=== PATIENT | male | born 1995 | race Caucasian/White ===

== ENCOUNTER 2016-12-02 09:52 | Inpatient (IN) | payer BC, OTHER ==
[~2016-12-02] VITALS: Ht 167.6 cm; Wt 56.7 kg
--- NOTE | 2016-12-02 11:35 | NUR ---
Admission Note: Patient is a 21 year old male who states that he is here to get help from BZOs. Alert and oriented x 4. Able to make his needs known. Able to answer questions appropriately regarding the admission process and drug use. Appears anxious with fine tremors to bilateral hands and clammy skin. Respirations even and unlabored. No SOB noted. Skin warm and moist to touch. Body search done by male DIRECTOR ERP. No contraband was found. Skin search done by nurse and noted with no skin breakdown. However, patient noted with skin peeling from his right deltoid from a new tattoo he got 3 days ago. No s/s of infection noted. Abdomen soft and non-distended. No complains of N/V/D or constipation noted. No complains of abdominal discomfort. Reports LBM 12/02/2016 during the plane ride from [place]. Ambulatory ad sebas with steady gait. Reports NKA. Follows a regular diet. Wishes to be FULL CODE. Reports past medical hx of anxiety, depression, and x 1 episode of seizure at 16 years old due to BZO withdrawal. Reports taking Celexa 30 mg PO at home and Seroquel 100 mg PO QHS for insomnia. Last taken was 1 month ago. He denies having a PCP at this time. Noted with family hx of substance abuse and has as mother that in 03/2016 due to overdose. Patient reports that his withdrawal symptoms are tremors, sweats, clammy skin, anxiety, and agitation. He denies sharing needles with anyone and his longest period of sobriety was for 6 months from end of Jul 2015 to January 2016. He has been to multiple treatment centers and has struggled with sobriety. Substance Use: 1. Etizolam - since 2015. Orally takes 10 mg PO. Last use was on 11/30/2016, 10 mg PO. 2. Alprazolam - since 2015. Orally takes 2 mg PO when Etizolam is not available. Last use was 12/02/2016 at 0800 PST, 2 mg. 3. Methamphetamine - started using less than a week ago, last use was on 12/02/2016 at 0000, "2 bumps or hits." 4. Marijuana - since July 2016. Smoked 1 gram a day. Last use was on 12/01/2016 at 0900, 1 gram. Treatment History: 1. [facility] - x 1 month in 2015 2. [facility] - x 1 month in 03/2016 3. [facility] - from May 2016 to mid-June 2016. Dr. Awad in and examined the patient. Informed MD of patient's current condition. Admission orders were entered and carried out. Oriented patient to the unit. Explained unit's policy and protocols. Safety precautions in place. Will continue to monitor closely.
[2016-12-02 11:36] VITALS: BP 133/75
[2016-12-02 12:00] VITALS: BP 133/75
[2016-12-02] MEDS ORDERED: CITA20TA19 PO (12:13)
[2016-12-02] MEDS ORDERED: QUET100T PO (12:13)
[2016-12-02 12:28] LABS: *AMPHETAMINE, URINE POSITIVE (NEGATIVE); *BARBITURATE, URINE NEGATIVE (NEGATIVE); *CANNABINOID, URINE POSITIVE (NEGATIVE); *COCCAINE, URINE NEGATIVE (NEGATIVE); *OPIATE, URINE NEGATIVE (NEGATIVE); *PHENCYCLIDINE SCREEN,URINE NEGATIVE (NEGATIVE)
[2016-12-02] MEDS ORDERED: MIRALAX 17 GM POWD.PACK PO PRN (12:30)
[2016-12-02] MEDS ORDERED: DIAZEPAM 10 MG TABLET PO PRN ×2 (12:30)
[2016-12-02] MEDS ORDERED: MAGNESIUM HYDROXIDE 30 ML LIQUID UDC PO PRN (12:30)
[2016-12-02] MEDS ORDERED: DICYCLOMINE HCL 20 MG TABLET PO PRN (12:30)
[2016-12-02] MEDS ORDERED: CLONIDINE HCL 0.1 MG TABLET PO PRN (12:30)
[2016-12-02] MEDS ORDERED: LOPERAMIDE HCL 2 MG CAPSULE PO PRN ×2 (12:30)
[2016-12-02] MEDS ORDERED: LORAZEPAM 2 MG/1 ML VIAL IM PRN (12:30)
[2016-12-02] MEDS ORDERED: HYDROXYZINE PAMOATE 25 MG CAPSULE PO PRN (12:30)
[2016-12-02] MEDS ORDERED: ACETAMINOPHEN 325 MG TABLET PO PRN (12:30)
[2016-12-02] MEDS ORDERED: DIAZEPAM 5 MG TABLET PO PRN (12:30)
[2016-12-02] MEDS ORDERED: ONDANSETRON ODT 4 MG TAB.RAPDIS SL PRN (12:30)
[2016-12-02] MEDS ORDERED: BACLOFEN 20 MG TABLET PO PRN (12:30)
[2016-12-02] MEDS ORDERED: diphenhydrAMINE 50 MG CAPSULE PO PRN (12:30)
[2016-12-02] MEDS ORDERED: IBUPROFEN 600 MG TABLET PO PRN (12:30)
[2016-12-02] MEDS ORDERED: MAG HYDROX/AL HYDROX/SIMETH 30 ML LIQUID UDC PO PRN (12:30)
[2016-12-02] MEDS ORDERED: ONDANSETRON 4 MG/2 ML VIAL IM PRN (12:30)
--- NOTE | 2016-12-02 13:03 | NUR ---
PRN Valium 5 mg PO given: CIWA 8. Presented with anxiety, sweats and BUE minimal tremors. Notified MD. Per MD, administer Valium 5 mg PO as ordered per CIWA score of 8. Will monitor for effectiveness.
[2016-12-02 13:04] LABS: BASOPHILS % (AUTO) 0.6 % (0.0-2.0); EOSINOPHILS % (AUTO) 0.4 % (0.0-7.0); HEMATOCRIT 52.2 % (36.7-47.1); HEMOGLOBIN 17.6 g/dL (12.5-16.3); LYMPHOCYTES # (AUTO) 2.1 K/uL (20.0-40.0); LYMPHOCYTES % (AUTO) 27.7 % (20.5-74.5); MEAN CORPUSCULAR HEMOGLOBIN 30.3 uug (23.8-33.4); MEAN CORPUSCULAR HGB CONC 34 g/dL (32.5-36.3); MEAN CORPUSCULAR VOLUME 89.6 fL (73.0-96.2); MONOCYTES # (AUTO) 0.8 K/uL (2.0-10.0); NEUTROPHILS # (AUTO) 4.7 K/uL (1.8-8.9); NEUTROPHILS % (AUTO) 61.3 % (31.5-64.5); PLATELET COUNT (AUTO) 200 K/uL (152-348); RED BLOOD CELL COUNT(AUTO) 5.82 MIL/uL (4.06-5.63); WHITE BLOOD COUNT (AUTO) 7.6 K/uL (3.6-10.2)
[2016-12-02 13:22] LABS: ETHANOL < 3 MG/DL (0-0)
[2016-12-02 13:34] LABS: THYROID STIMULATING HORMONE 1.242 mIU/mL (0.358-3.740)
[2016-12-02 13:35] LABS: ALANINE AMINOTRANSFERASE 18 U/L (16-63); ALBUMIN 4.7 g/dL (3.4-5.0); ALKALINE PHOSPHATASE 68 U/L (50-136); ASPARTATE AMINOTRANSFERASE 23 U/L (15-37); CALCIUM 9.6 mg/dL (8.5-10.1); CARBON DIOXIDE 30 mmol/L (21-32); CHLORIDE 101 mmol/L (98-107); CREATININE 1.1 mg/dL (0.6-1.3); GFR 85 mL/min (>60); GLUCOSE 104 mg/dL (74-106); MAGNESIUM 2.1 mg/dL (1.8-2.4); POTASSIUM 3.9 mmol/L (3.5-5.1); SODIUM SERUM 141 mmol/L (136-145); TOTAL PROTEIN, SERUM 8.4 g/dL (6.4-8.2); UREA NITROGEN, BLOOD 9 mg/dL (7-18)
[2016-12-02 13:39] LABS: HIV-1 p24 ANTIGEN NON REACTIVE (NONREACTIVE); HIV-1/2 ANTIBODY NON REACTIVE (NONREACTIVE)
--- NOTE | 2016-12-02 14:03 | NUR ---
Re-assessment: CIWA 6. Less anxiety, less fine tremors noted. Patient is in group at this time.
[2016-12-02 16:00] VITALS: BP 127/87
--- NOTE | 2016-12-02 18:42 | NUR ---
End of Shift Notes: Patient is a 21 yaer old male admitted for BZO dependence who was placed on a modified 5-day Phenobarbital taper which will be started tomorrow but with 1 dose of of 90 mg PO to be given tonight. Patient is FULL CODE. NKA. Regular diet. On fall and seizure precautions. Has past medical hx of depression, anxiety, insomnia and seizures related to withdrawal from BZO. Prior to admission, patient was using 10 mg of Etizolam and 2 mg of Alprazolam x 4 months. VS monitored closely q 4 hours. No significant abnormalities noted. Withdrawal symptoms closely monitored. Initial CIWA 8, presented with anxiety, sweats and tremors to E. Last CIWA 6. Patient was medicated with Valium 5 mg PO as ordered at 1302 due to CIWA 8 with help after 1 hour, CIWA 6. Patient actively participates in activities and therapy sessions. Oral fluids encouraged. Able to tolerate oral intake. All needs met and attended. Will continue to monitor closely.
--- NOTE | 2016-12-02 19:14 | NUR ---
Start of shift note Received report from day shift nurse. Pt is a 21 yo male, A+Ox4, presenting to [facility] for Benzo/Methamphetamine/Marijuana dependence. Pt has NKA, is Full Code status, and on Regular diet. Pt is on Fall and Seizure precautions. Pt has HX of Depression, Seizure, Anxiety, and Insomnia. Pt is on 5 day Phenobarbital taper, tolerated well. No s/s of distress noted at this time. Respirations even and unlabored. Will continue to monitor.
[2016-12-02 20:18] VITALS: BP 139/82
[2016-12-02] MEDS ORDERED: PHENOBARBITAL 60 MG TABLET PO SCH (21:00)
--- NOTE | 2016-12-02 22:05 | NUR ---
PRN Benadryl Pt c/o inability to sleep and requested for PRN Benadryl. Medication given and tolerated well. Will reassess within 1 HR. Will continue to monitor.
--- NOTE | 2016-12-02 23:00 | NUR ---
PRN Benadryl Reassessment Medication effective. Pt is resting well in bed. No s/s of ASE/distress noted at this time. Respirations even and unlabored. Will continue to monitor.
[2016-12-03 00:58] VITALS: BP 121/80
[2016-12-03 04:21] VITALS: BP 113/65
--- NOTE | 2016-12-03 07:02 | NUR ---
End of shift note Pt is a 21 yo male, A+Ox4, presenting to [facility] for Benzo/Methamphetamine/Marijuana dependence. Pt has NKA, is Full Code status, and on Regular diet. Pt is on Fall and Seizure precautions. Pt has HX of Depression, Seizure, Anxiety, and Insomnia. Pt is on 5 day Phenobarbital taper, tolerated well. Pt was given PRN Benadryl @2205. Pt slept for a total of 7 HRS. Last CIWA: 3 @0400. No s/s of distress noted at this time. Respirations even and unlabored. Will endorse to day shift nurse.
[2016-12-03 08:00] VITALS: BP 112/75
--- NOTE | 2016-12-03 08:00 | NUR ---
START OF SHIFT Pt 21 y/o male admitted for bzo dependence. Pt received in room on bed with eyes closed, but easily arousable to name. Pt alert and oriented to name, place, and time. Perrla. Skin warm and slightly moist to touch. Respirations even and unlabored. It was reported that pt slept for 7 hours last night. Bed on lowest position with side rails x2 up for safety. Call light within reach. No distress noted at this time.
[2016-12-03] MEDS ORDERED: GABAPENTIN 300 MG CAPSULE PO SCH (09:00)
[2016-12-03] MEDS ORDERED: TUBERCULIN,PURIF.PROT.DERIV. 5 TU/0.1 ML TEST ID ONE (09:00)
[2016-12-03] MEDS: MULTIVITAMINS,THERAPEUTIC TABLET PO SCH (09:06)
[2016-12-03] MEDS: PHENOBARBITAL 60 MG TABLET PO SCH ×4 (09:06→20:46)
[2016-12-03 12:00] VITALS: BP 138/92
[2016-12-03 14:12] LABS: HCV AB <0.1 s/co ratio (0.0-0.9); HEPATITIS B CORE AB, IgM Negative (Negative); HEPATITIS B SURFACE AG Negative (Negative)
[2016-12-03] MEDS: GABAPENTIN 300 MG CAPSULE PO SCH ×2 (15:17→20:46)
[2016-12-03 16:00] VITALS: BP 105/63
--- NOTE | 2016-12-03 18:13 | NUR ---
END OF SHIFT Pt 21 y/o male admitted for bzo dependence. Pt alert and oriented to name, place, and time. Perrla. Skin warm and slightly moist to touch. Respirations even and unlabored. Pt observed mostly in room throughout the day. Pt selective with group activity. Pt medication compliant and tolerated well. No ASe noted. Bed on lowest position with side rails x2 up for safety. Call light within reach. No distress noted at this time.
[2016-12-03 20:00] VITALS: BP 128/81
--- NOTE | 2016-12-03 20:00 | NUR ---
START OF SHIFT NOTE PATIENT WAS IN GROUP MEETING. PATIENT ALERT AND ORIENTED X 4. RESPIRATION EVEN AND UNLABORED. PATIENT REPORTS ANXIOUS, SWEATING AND FLUSHED FACE, PATIENT STATES HIS APPETITE IS GETTING BETTER AND HE MIGHT NEED SLEEP AID LATER BECAUSE HE DID NOT GET MUCH SLEEP LAST NIGHT. MEDICATION IS ALSO EFFECTIVE IN CONTROLLING HIS WITHDRAWAL SYMPTOMS. RECEIVED REPORT FROM DAY SHIFT NURSE, PATIENT IS A 21 YEAR OLD MALE , ADMITTED ON 12/02/16 FOR BENZO DEPENDENCE. PATIENT IS ON 2ND DAY OF HIS 7 DAY PHENOBARBITAL TAPER. PATIENT IS FULL CODE, REGULAR DIET AND NO KNOWN ALLERGY. PATIENT REPORTS PMH OF DEPRESSION , SEIZURE X 1 R/T BENZO WITHDRAWAL 5 YEARS AGO , ANXIETY AND INSOMNIA. PATIENT IS ON ETIZOLAM 10 MG FOR 3 MONTHS, XANAX 2 MG FOR 4 MONTHS , METH "2 BUMPS OR HITS" LESS THAN A WEEK AND MARIJUANA 1 GRAM FOR 4 MONTHS. ON FALL/SEIZURE PRECAUTION. SKIN INTACT. PATIENT DID NOT REQUIRE ANY PRN MEDICATION DURING THE DAY. LAST CIWA 4. SAFETY MEASURES IN PLACE. CALL LIGHT IN REACH. WILL CONTINUE TO MONITOR.
[2016-12-03] MEDS ORDERED: DIAZEPAM 10 MG TABLET PO PRN ×2 (21:15)
[2016-12-03] MEDS ORDERED: DIAZEPAM 5 MG TABLET PO PRN (21:15)
[2016-12-03] MEDS: QUETIAPINE FUMARATE 100 MG TABLET PO PRN (21:44)
--- NOTE | 2016-12-03 21:44 | NUR ---
PRN SEROQUEL ADMINISTRATION PATIENT REQUESTS FOR SLEEP AID. PRN SEROQUEL GIVEN. WILL MONITOR FOR EFFECTIVENESS
--- NOTE | 2016-12-03 23:00 | NUR ---
PRN SEROQUEL RE-ASSESSMENT PATIENT IN BED WITH EYE CLOSED. RESPIRATION EVEN AND UNLABORED. SAFETY MEASURES IN PLACE. CALL LIGHT IN REACH. WILL CONTINUE TO MONITOR.
[2016-12-04] VITALS: BP 114/54
[2016-12-04 04:00] VITALS: BP 110/61
--- NOTE | 2016-12-04 07:28 | NUR ---
END OF SHIFT NOTE PATIENT ALERT AND ORIENTED X 4. RESPIRATION EVEN AND UNLABORED. PATIENT REPORTS ANXIOUS, SWEATING AND FLUSHED FACE DURING SHIFT. PRN SEROQUEL AT 2144 WAS GIVEN AND EFFECTIVE. PATIENT STATES MEDICATION IS EFFECTIVE IN CONTROLLING HIS WITHDRAWAL SYMPTOMS. PATIENT COMPLIANT WITH MEDICATIONS AND TREATMENT PLAN. PATIENT IS ON 2ND DAY OF HIS 7 DAY PHENOBARBITAL TAPER FOR BENZO DEPENDENCE. PATIENT IS FULL CODE, REGULAR DIET AND NO KNOWN ALLERGY. PATIENT REPORTS PMH OF DEPRESSION , SEIZURE X 1 R/T BENZO WITHDRAWAL 5 YEARS AGO , ANXIETY AND INSOMNIA. PATIENT IS ON ETIZOLAM 10 MG FOR 3 MONTHS, XANAX 2 MG FOR 4 MONTHS , METH "2 BUMPS OR HITS" LESS THAN A WEEK AND MARIJUANA 1 GRAM FOR 4 MONTHS. ON FALL/SEIZURE PRECAUTION. SKIN INTACT. SAFETY MEASURES IN PLACE. CALL LIGHT IN REACH. WILL CONTINUE TO MONITOR. SLEPT 8 HOURS. FLUID INTAKE 1,446 ML. VOIDED X 3. NO BM. LAST CIWA 1.
[2016-12-04 08:00] VITALS: BP 108/60
--- NOTE | 2016-12-04 08:00 | NUR ---
START OF SHIFT Pt 21 y/o male admitted for BZO dependence. Pt received in room on bed with eyes closed, but easily arousable to name. Pt alert and oriented to name, place, and time. Perrla. Skin warm and slightly moist to touch. Respirations even and unlabored. It was reported that pt slept for 8 hours last night. Bed on lowest position with side rails x2 up for safety. Call light within reach. No distress noted at this time.
[2016-12-04] MEDS: MULTIVITAMINS,THERAPEUTIC TABLET PO SCH (08:53)
[2016-12-04] MEDS: GABAPENTIN 300 MG CAPSULE PO SCH ×3 (08:53→20:30)
[2016-12-04] MEDS: PHENOBARBITAL 60 MG TABLET PO SCH ×3 (08:53→20:30)
[2016-12-04 12:00] VITALS: BP 125/60
--- NOTE | 2016-12-04 12:12 | NUR ---
Therapist encouraged client to attend group session.
--- NOTE | 2016-12-04 14:12 | NUR ---
NSG ENTRY Pt observed in room on bed with eyes closed resting, but easily arousable to name.
[2016-12-04 16:00] VITALS: BP 146/66
[2016-12-04 20:00] VITALS: BP 130/78
--- NOTE | 2016-12-04 20:00 | NUR ---
START OF SHIFT NOTE RECEIVED REPORT FROM DAY SHIFT NURSE. PATIENT IS HERE FOR BENZO DEPENDENCE. PATIENT IS ON 3RD DAY OF HIS 6 DAYS PHENOBARBITAL TAPER. PATIENT DID NOT RECEIVE ANY PRN MEDICATIONS DURING THE DAY. LAS CIWA 4. VITAL SIGN STABLE. PATIENT COMPLAINT WITH MEDICATIONS AND TREATMENT PLAN. PATIENT ALERT AND ORIENTED X 4. RESPIRATION EVEN AND UNLABORED. DENIES ANY PAIN . PATIENT STATES MEDICATION ARE EFFECTIVE IN CONTROLLING HIS WITHDRAWAL SYMPTOMS. PATIENT STATES HE FEEL MUCH BETTER TODAY THAN YESTERDAY AND HE SLEPT WELL. ON FALL/SEIZURE PRECAUTION. SAFETY MEASURES IN PLACE. CALL LIGHT IN REACH. WILL CONTINUE TO MONITOR.
[2016-12-04] MEDS: QUETIAPINE FUMARATE 100 MG TABLET PO PRN (22:32)
--- NOTE | 2016-12-04 22:32 | NUR ---
PRN SEROQUEL ADMINISTRATION PATIENT REQUESTS FOR SLEEP AID. PRN SEROQUEL GIVEN. WILL MONITOR FOR EFFECTIVENESS
--- NOTE | 2016-12-04 23:32 | NUR ---
PRN SEROQUEL RE-ASSESSMENT PATIENT IN BED WITH EYES CLOSED. NO S/S OF DISTRESS. RESPIRATION EVEN AND UNLABORED. SAFETY MEASURES IN PLACE. CALL LIGHT IN REACH. WILL CONTINUE TO MONITOR.
[2016-12-05] VITALS: BP 111/52
[2016-12-05 04:00] VITALS: BP 104/57
--- NOTE | 2016-12-05 07:39 | NUR ---
END OF SHIFT NOTE MONITORED PATIENT THROUGHOUT THE SHIFT. PATIENT ALERT AND ORIENTED X 4. RESPIRATION EVEN AND UNLABORED. PATIENT COMPLIANT WITH MEDICATIONS. PATIENT DID NOT ATTEND GROUPS, ENCOURAGED. CONTINUE ON SUBUTEX TAPER ORDERED , TOLERATED WELL AND NO ADVERSE REACTION. PATIENT REPORTED ANXIETY, SWEATING AND YAWNING. NO N/V. DENIES ANY PAIN. PATIENT DID NOT REQUIRE ANY PRN MEDICATION DURING SHIFT. PATIENT SLEPT 5 HOURS. FLUID INTAKE 1,355 ML. VOIDED X 4. NO BM. LAST CIWA 1 AND COWS 1. Addendum: 12/05/16 at 0741 by NOHELIA AIKEN LVN ERROR: CHARTING IS FOR ANOTHER PATIENT
--- NOTE | 2016-12-05 07:42 | NUR ---
END OF SHIFT NOTE PATIENT MONITORED THROUGHOUT THE SHIFT. PATIENT ALERT AND ORIENTED X 4. RESPIRATION EVEN AND UNLABORED. PATIENT COMPLIANT WITH MEDICATIONS AND TREATMENT PLAN. PATIENT SOCIALIZING WITH OTHER PATIENTS . ATTENDED GROUPS, PATIENT STATES HIS APPETITE IS GOOD AND DRINKING FLUIDS WELL. PATIENT REPORTED ANXIETY AND SWEATING DURING SHIFT. NO N/V. DENIES ANY PAIN. PHENOBARBITAL TAPER GIVEN ORDERED WITH NO ADVERSE REACTION AND TOLERATED WELL. PATIENT REQUESTED FOR SLEEP AID AT 2232, EFFECTIVE. PATIENT SLEPT 7 HOURS. FLUID INTAKE OF 795 ML . VOIDED X 2. NO BM. PATIENT STATES MEDICATION ARE EFFECTIVE IN CONTROLLING HIS WITHDRAWAL SYMTOMS IN EVIDENCE OF CIWA SCORE FROM 4 TO LAST CIWA 1.
[2016-12-05 08:00] VITALS: BP 115/71
[2016-12-05] MEDS: MULTIVITAMINS,THERAPEUTIC TABLET PO SCH (09:18)
[2016-12-05] MEDS: PHENOBARBITAL 60 MG TABLET PO SCH ×4 (09:18→20:58)
[2016-12-05] MEDS: GABAPENTIN 300 MG CAPSULE PO SCH ×2 (09:18→15:12)
--- NOTE | 2016-12-05 10:00 | NUR ---
START OF SHIFT Report received from night club manager nurse. Received patient laying in her bed, awake and alert oriented X4. Patient is 21 year-old male admitted medically supervised withdrawal from non-prescribed benzodiazepines. Patient is full code with NKA. On seizure and fall precautions and regular diet. On 7-day Phenobarbital taper. On assessment this AM: CIWA: 1. Patient reports mild sweating. Patient denies SOB/chest pain/dizziness. Ambulates with steady gait. Med and treatment compliant. Scheduled Phenobarbital given as ordered. TB skin test read on L forearm at 09:00am with negative result. Patient encouraged to participate in group meetings. Patient able to verbalize needs and express thoughts and feelings. All needs met at this time. Call lights within reach and bed at low setting. Will continue to monitor patient.
[2016-12-05 12:00] VITALS: BP 135/80
[2016-12-05 16:00] VITALS: BP 117/49
--- NOTE | 2016-12-05 18:59 | NUR ---
END OF SHIFT Patient is 21 year-old male admitted medically supervised withdrawal from non-prescribed benzodiazepines. Patient is full code with NKA. On seizure and fall precautions and regular diet. On 7-day Phenobarbital taper. Most recent assessment: CIWA: 0: Patient denies any complaints at this time. No PRN given this shift. He is attending group activities (i.e. yoga clas) and states it was effective. He is noted interacting well with others. Remains compliant with meds and treatment plans. Phenobarbital given as ordered. BM X2 this shift. Tolerating diet well without nausea/vomiting. Patient reports appetite has also improved. All needs met. Patient did not verbalize any concern or questions at this time. lever millermaterial handler 2nd shift will continue to monitor patient.
[2016-12-05 20:00] VITALS: BP 119/76
--- NOTE | 2016-12-05 20:00 | NUR ---
1999 Patient received sitting up on the side of his bed in room # 304. Patient responds to nurse's greeting and introduction with a smile and " Hi, I'm doing just fine right now, much better than when I first got here." Patient is oriented to person, place, day, date, time and his personal situation. His color is pink and his skin is warm, dry and intact. Patient noted to have some " petroleum jelly" spread on his right arm bicep area, black ink tatoo. Patient states, " I just got this tatoo right before I came here, so the vaseline is helping the tatoo with to heal good". Patient noted to have multiple black ink tatoos n his arm. Lung sounds are clear bilaterally and active bowel sounds are noted X 4 abdominal Quads. Patient states that he has been consistently attending all [facility] groups and eating his regular diet trays and taking fluids ad sebas with no real gastric issues. Patient denies any pain or other discomforts at this time and he offers no c/o anything at this time. Vital signs are: 98.5-95-18 119/76, O2 sat 96%, CIWA 1. Patient was admitted on 12/02/16 for: Etizolam, Xanax, Methamphetamine and Marijuana withdrawal and he is currently on a Phenobarbital medication taper, which he states has been ' keeping him feeling very comfortable'. Fall/Seizure precautions continue. Patient moves all his extremities fully WNL. Patient is cooperative and verbally appropriate when interacting with nurse, however mood/affect is guarded and slightly flat and withdrawn. Bed is locked and in lowest position, bed rails are up X 2 and call light within patient's very easy reach.
[2016-12-05] MEDS ORDERED: GABAPENTIN 300 MG CAPSULE PO SCH (21:00)
[2016-12-06] VITALS: BP 119/74
--- NOTE | 2016-12-06 | NUR ---
Vital signs are: 97.9-70-14 119/74, O2 sat 96%, CIWA 1.
--- NOTE | 2016-12-06 04:00 | NUR ---
Patient refuses to be awakened for V/S, CIWA to be done at this time.
--- NOTE | 2016-12-06 06:30 | NUR ---
0630 Patient slept a total of 8 hours and he was up to the bathroom for 3 voids and 1 stools. Total intake was 1,570 ml p.o. No prn medications given this shift. V/SS afebrile, last CIWA 1. Patient is presently sleeping comfortably in stable condition with eyes closed and respirations even, unlabored at 14.
--- NOTE | 2016-12-06 07:31 | NUR ---
START OF SHIFT NOTE: Report received from production shift supervisor nurse. Patient is 21 year-old male admitted 12-02-16 for medically supervised withdrawal from non-prescribed benzodiazepines. Pt is currently on a Phenobarb taper. Tolerating well. Pt is alert and oriented X4. Color good, skin warm and dry. Respirations even and unlabored. Resting in bed at this time. Safety precautions observed. Call light within reach.
[2016-12-06 09:20] VITALS: BP 119/74
[2016-12-06] MEDS: MULTIVITAMINS,THERAPEUTIC TABLET PO SCH (09:25)
[2016-12-06] MEDS: PHENOBARBITAL 60 MG TABLET PO SCH ×3 (09:25→21:45)
[2016-12-06] MEDS: GABAPENTIN 300 MG CAPSULE PO SCH ×3 (09:25→21:45)
[2016-12-06 12:55] VITALS: BP 134/60
--- NOTE | 2016-12-06 15:00 | NUR ---
CHERIE KEEN 3. Pt states he "feels pretty good."
[2016-12-06 17:20] VITALS: BP 104/58
--- NOTE | 2016-12-06 18:33 | NUR ---
END OF SHIFT NOTES: Report given to assistant casino shift manager nurse. Patient is 21 year-old male admitted 12-02-16 for benzo dependence. Pt is currently on a Phenobarb taper. Tolerating well. Pt is alert and oriented X4. Color good, skin warm and dry. Respirations even and unlabored. Vital signs have remained stable throughout shift. Last CIWA 3 @ 1500. No prn medication given. Safety precautions observed. Call light within reach.
[2016-12-06 20:00] VITALS: BP 117/66
--- NOTE | 2016-12-06 20:00 | NUR ---
Start of Shift Patient is a 21-year old, male, admitted for Dependence on Non-prescribed Benzodiazepines. Pt with history of Anxiety, Depression, Insomnia and Seizure x1 in 2011 r/t Benzo Withdrawal. Pt placed on a 6-day Phenobarbital Taper, started on 12/02/2016. Pt is AAOx4 and with no SOB observed. Pt with NKA, is Full Code and on Regular Diet. Pt is ambulatory with steady gait, and with intact skin. Fall, universal and safety prec in place. Call light within reach. Kept pt warm, dry and comfortable. All needs met. Latest CIWA=2. Will continue to monitor.
[2016-12-06] MEDS ORDERED: GABAPENTIN 300 MG CAPSULE ONE (21:35)
--- NOTE | 2016-12-07 00:05 | NUR ---
RN note Pt refused vital signs check and CIWA assessment despite explanation of risks and benefits. RR=14. No SOB nor facial grimacing noted.
--- NOTE | 2016-12-07 04:10 | NUR ---
RN note Pt refused vital signs check and CIWA assessment despite explanation of risks and benefits. RR=14. No SOB nor facial grimacing noted.
--- NOTE | 2016-12-07 07:07 | NUR ---
End of Shift Patient is a 21-year old, male, admitted for Dependence on Non-prescribed Benzodiazepines. Pt with history of Anxiety, Depression, Insomnia and Seizure x1 in 2011 r/t Benzo Withdrawal. Pt placed on a 6-day Phenobarbital Taper, started on 12/02/2016. Pt is AAOx4 and with no SOB observed. Pt with NKA, is Full Code and on Regular Diet. Pt is ambulatory with steady gait, and with intact skin. Fall, universal and safety prec in place. Call light within reach. Kept pt warm, dry and comfortable. All needs met. Latest CIWA=2, slept for 7 hours. Endorsed to AM shift nurse for continuity of care.
--- NOTE | 2016-12-07 07:27 | NUR ---
START OF SHIFT NOTE: Report received from scene shifter nurse. Patient is 21 year-old male admitted 12-02-16 for medically supervised withdrawal from non-prescribed benzodiazepines. Pt is currently on a Phenobarb taper. Tolerating well. Pt is alert and oriented X4. Color good, skin warm and dry. Respirations even and unlabored. Resting in bed at this time. Safety precautions observed. Call light within reach.
[2016-12-07] MEDS: MULTIVITAMINS,THERAPEUTIC TABLET PO SCH (08:47)
[2016-12-07] MEDS: GABAPENTIN 300 MG CAPSULE PO SCH ×3 (08:47→20:48)
[2016-12-07] MEDS: PHENOBARBITAL 60 MG TABLET PO SCH ×2 (08:47→20:48)
[2016-12-07 09:54] VITALS: BP 117/66
--- NOTE | 2016-12-07 10:00 | NUR ---
CHERIE KEEN 1 PT states he "feels pretty good."
[2016-12-07 13:31] VITALS: BP 126/68
[2016-12-07 17:51] VITALS: BP 126/68
--- NOTE | 2016-12-07 18:32 | NUR ---
END OF SHIFT NOTES: Report given to field marketing director nurse. Patient is 21 year-old male admitted 12-02-16 for benzo dependence. Pt is currently on a Phenobarb taper. Tolerating well. Pt is alert and oriented X4. Color good, skin warm and dry. Respirations even and unlabored. Vital signs have remained stable throughout shift. Last CIWA 1 @ 1500. No prn medication given. Safety precautions observed. Call light within reach.
[2016-12-07 20:00] VITALS: BP 136/87
--- NOTE | 2016-12-07 20:00 | NUR ---
Start of Shift Patient is a 21-year old, male, admitted for Dependence on Non-prescribed Benzodiazepines. Pt with history of Anxiety, Depression, Insomnia and Seizure x1 in 2011 r/t Benzo Withdrawal. Pt placed on a 6-day Phenobarbital Taper, started on 12/02/2016. Pt is AAOx4 and with no SOB observed. Pt with NKA, is Full Code and on Regular Diet. Pt is ambulatory with steady gait, and with intact skin. Fall, universal and safety prec in place. Call light within reach. Kept pt warm, dry and comfortable. All needs met. Latest CIWA=1. Will continue to monitor.
[2016-12-08] VITALS: BP 119/63
--- NOTE | 2016-12-08 04:05 | NUR ---
RN note Pt refused vital signs check and CIWA assessment despite explanation of risks and benefits. RR=14. No SOB nor facial grimacing noted.
--- NOTE | 2016-12-08 07:12 | NUR ---
End of Shift Patient is a 21-year old, male, admitted for Dependence on Non-prescribed Benzodiazepines. Pt with history of Anxiety, Depression, Insomnia and Seizure x1 in 2011 r/t Benzo Withdrawal. Pt placed on a 6-day Phenobarbital Taper, started on 12/02/2016. Pt is AAOx4 and with no SOB observed. Pt with NKA, is Full Code and on Regular Diet. Pt is ambulatory with steady gait, and with intact skin. Fall, universal and safety prec in place. Call light within reach. Kept pt warm, dry and comfortable. All needs met. Latest CIWA=1, slept for 6 hours. Endorsed to AM shift nurse for continuity of care.
--- NOTE | 2016-12-08 07:15 | NUR ---
Start of Shift Received report from shift supervisor rn nurse. Patient is a 21-year old, male, admitted for Dependence on Non-prescribed Benzodiazepines. Full code regular diet no known food or drug allergies. Pt with history of Seizure x1 in 2011 r/t Benzo Withdrawal. Pt placed on a 7-day Phenobarbital Taper, started on 12/02/2016. Pt is AAOx4 and with no SOB observed. Pt slept a total of 6 hours last night. Pt reported that he was not able to sleep well last night, Pt presented with mild anxiety, sweats, and tremors. Last CIWA score of 1 taken at 0400. Pt continues on fall and seizure precautions. Pt did not receive any PRN medications last night. All safety measures in place, call light within reach, will continue to monitor and provide care.
[2016-12-08 08:00] VITALS: BP 98/60
[2016-12-08] MEDS: GABAPENTIN 300 MG CAPSULE PO SCH ×3 (09:00→20:30)
[2016-12-08] MEDS: MULTIVITAMINS,THERAPEUTIC TABLET PO SCH (09:00)
[2016-12-08 12:00] VITALS: BP 115/69
[2016-12-08 16:00] VITALS: BP 121/73
[2016-12-08 17:57] LABS: *AMPHETAMINE, URINE NEGATIVE (NEGATIVE); *BARBITURATE, URINE POSITIVE (NEGATIVE); *CANNABINOID, URINE POSITIVE (NEGATIVE); *COCCAINE, URINE NEGATIVE (NEGATIVE); *OPIATE, URINE NEGATIVE (NEGATIVE); *PHENCYCLIDINE SCREEN,URINE NEGATIVE (NEGATIVE)
[2016-12-08] MEDS ORDERED: Gabapentin PO (18:08)
[2016-12-08] MEDS ORDERED: Baclofen PO (18:08)
[2016-12-08] MEDS ORDERED: HYDR-3895 PO (18:08)
--- NOTE | 2016-12-08 19:11 | NUR ---
End of Shift Report given to office helper. Patient is a 21-year old, male, admitted for Dependence on Non-prescribed Benzodiazepines. Full code regular diet no known food or drug allergies. Pt with history of Seizure x1 in 2011 r/t Benzo Withdrawal. Pt completed his 7-day Phenobarbital Taper, pt to be discharged tomorrow. Urine collected for the final UDS and the discharge paperwork completed. Patient encouraged adequate PO fluid intake as tolerated. Upon assessment patient presented with dilated pupils mild anxiety, mild anxiety and barely sweating with his last CIWA score of: 1 @1600. Detox medication effective at reducing withdrawal symptoms. Patient encouraged to attend group therapies/sessions to learn new coping skills to recent relapse, noted attending and participating, patient denies SI/HI. Pt ate all of his meals his total fluid intake was 2310ml with 4 void and 2 bowel movement ,no PRN medications were administered during shift. Safety measures in place. Call light kept within reach. Patient endorsed to office helper nurse, all pertinent information discussed.
[2016-12-08 20:00] VITALS: BP 120/69
--- NOTE | 2016-12-09 00:05 | NUR ---
RN note Pt refused vital signs check and CIWA assessment despite explanation of risks and benefits. RR=16. No SOB nor facial grimacing noted.
--- NOTE | 2016-12-09 04:10 | NUR ---
RN note Pt refused vital signs check and CIWA assessment despite explanation of risks and benefits. RR=14. No SOB nor facial grimacing noted.
--- NOTE | 2016-12-09 07:35 | NUR ---
BEGINNING OF SHIFT Patient endorsement report received from janitorial maintenance worker nurse, all pertinent information discussed. Patient with admitting Dx: BZO Dependence Patient completed 6 day phenobarbital taper and is scheduled for discharge today, Patient slept for 6 hours, with last ciwa score of: 1. Patient received no PRNs during janitorial maintenance worker. Fall and seizure precautions observed at all times. Patient received awake, alert and oriented x4, educated regarding plan of care for the day and medication regimen with good verbal understanding. will continue to monitor closely. safety measures in place. call light with in reach.
[2016-12-09 08:27] VITALS: BP 121/66
[2016-12-09] MEDS: MULTIVITAMINS,THERAPEUTIC TABLET PO SCH (08:32)
[2016-12-09] MEDS: GABAPENTIN 300 MG CAPSULE PO SCH ×2 (08:32→14:01)
[2016-12-09 13:16] VITALS: BP 116/77
--- NOTE | 2016-12-09 14:30 | NUR ---
DISCHARGE Patient discharged at 1430, prior to discharge patient educated regarding all discharge instructions with good verbal understanding. Patients prescriptions and discharge instructions were placed in patients personal duffel bag. patients vital signs were stable, no signs s/sx of withdrawal, noted self motivated towards sobriety. patient off the unit at 1430.
== END 2016-12-09 14:30 | disposition other institution (70) | DRG 895 ==
LOC: SRC 10:09
PROVIDERS: ADMIT Internal Medicine; ATTEND Internal Medicine
PROC: HZ2ZZZZ Detoxification Services for Substance Abuse Treatment (ICD-10-PCS; principal; 2016-12-02)
PROC: HZ41ZZZ Group Counseling for Substance Abuse Treatment, Behavioral (ICD-10-PCS; principal; 2016-12-02)
PROC: HZ31ZZZ Individual Counseling for Substance Abuse Treatment, Behavioral (ICD-10-PCS; 2016-12-04)
DX: F13.239 Sedative, hypnotic or anxiolytic dependence with withdrawal, unspecified (principal); F33.1 Major depressive disorder, recurrent, moderate; F11.21 Opioid dependence, in remission; Z81.3 Family history of other psychoactive substance abuse and dependence; Z82.49 Family history of ischemic heart disease and other diseases of the circulatory system; G47.00 Insomnia, unspecified; F17.210 Nicotine dependence, cigarettes, uncomplicated; F12.90 Cannabis use, unspecified, uncomplicated; G25.81 Restless legs syndrome; Z91.14 Patient's other noncompliance with medication regimen; F15.10 Other stimulant abuse, uncomplicated
CPT/HCPCS: 36415; 70030-TC; 80307; 83735; 84443; 85025; 86592; 86705; 86803; 87340; 87806; G6040-TC; J8499; Q0163